=== PATIENT | male | born 1945 | race Caucasian/White ===

== ENCOUNTER → 2024-02-26 | Outpatient (CLI) | payer OTHER ==
[~2024-02-26] MED LIST: AEC81 PO; ATOR10TA69 PO; DYAZIDE GT; ENAL-91 PO; FLUT1BLS8 IH; LORA10TA7 PO; METO25TA6 PO; MVI PO
[2024-02-26] MEDS: REGADENOSON 0.4 MG/5 ML PF SYG IVP ONE (11:55)
== END | disposition home or self-care (01) ==
LOC: SHCH 09:01
PROVIDERS: ATTEND Internal Medicine Cardiovascular Disease
DX: I25.10 Atherosclerotic heart disease of native coronary artery without angina pectoris (principal)
CPT/HCPCS: 78452; 96374; 93017; J2785; A9500 ×2